=== PATIENT | female | born 1960 | race Caucasian/White ===

== ENCOUNTER 2017-06-28 07:13 | Outpatient (CLI) | payer SELFPAY ==
[2017-06-28 08:20] LABS: BASOPHILS % 0.7 (0.0-1.5); EOSINOPHILS % 1.4 % (0.0-6.8); MEAN CORPUSCULAR HEMOGLOBIN 29.6 pg (28.0-34.0); MEAN CORPUSCULAR VOLUME 90.1 fl (80.0-100.0); MONOCYTES % 4.1 % (0.0-11.0); NEUTROPHILS # 3.1 # k/uL (1.4-7.7)
[2017-06-28 09:09] LABS: eGFR (African) > 60; eGFR (Non-African) > 60
== END 2017-06-28 07:14 ==
LOC: LAB 07:13
PROVIDERS: ATTEND Family Medicine
DX: R60.9 Edema, unspecified (principal); K59.9 Functional intestinal disorder, unspecified; M13.80 Other specified arthritis, unspecified site; R63.5 Abnormal weight gain
CPT/HCPCS: 36415; 80053; 80061; 82306; 82784; 83516; 83880; 84443; 85025; 86812

== ENCOUNTER 2017-10-01 06:18 | Outpatient (CLI) | payer OTHER ==
--- NOTE | 2017-10-01 15:22 | Diagnostic Imaging Report ---
JOSHUA MENDOZA [facility] [address] [facility].[address] [address] Report Submission Date: Oct 01, 2017 12:34:12 PM CDT Patient Study Name: DESIRAE PRUETT Date: Oct 01, 2017 12:00:03 PM CDT Modality Type: DX Gender: F Description: UPPER EXTREMITY : 60 Institution: [facility] Physician: JOSHUA MENDOZA Examination: Plain film right hand History: BILAT HAND PAIN (Hx) Comparison exams: None available Findings: 3 views the right hand demonstrates articular degenerative changes. Mild generalized osteopenia. No fracture. No dislocation. No soft tissue abnormality. Impression: Osteopenia and degenerative changes. No acute appearing osseous abnormality. Electronically signed on Oct 01, 2017 12:34:12 PM CDT by: Obie PORTILLO
--- NOTE | 2017-10-01 15:23 | Diagnostic Imaging Report ---
JOSHUA MENDOZA [facility] [address] [facility].[address] [address] Report Submission Date: Oct 01, 2017 12:34:47 PM CDT Patient Study Name: DESIRAE PRUETT Date: Oct 01, 2017 12:04:08 PM CDT Modality Type: DX Gender: F Description: UPPER EXTREMITY : 60 Institution: [facility] Physician: JOSHUA MENDOZA Examination: Plain film left hand History: BILAT HAND PAIN (Hx) Comparison exams: None available Findings: 3 views the left hand demonstrates articular degenerative changes. Mild generalized osteopenia. No fracture. No dislocation. No soft tissue abnormality. Impression: Osteopenia and degenerative changes. No acute appearing osseous abnormality. Electronically signed on Oct 01, 2017 12:34:47 PM CDT by: Obie PORTILLO
== END 2017-10-01 06:20 ==
LOC: RAD 06:18
PROVIDERS: ATTEND Family Medicine
DX: L40.50 Arthropathic psoriasis, unspecified (principal)
CPT/HCPCS: 73130

== ENCOUNTER 2017-10-11 09:27 | Outpatient (CLI) | payer BC | END 2017-10-11 09:30 | LOC: LAB 09:27 | PROVIDERS: ATTEND Internal Medicine Rheumatology | DX: M25.441 Effusion, right hand (principal); M25.442 Effusion, left hand | CPT/HCPCS: 36415; 85651; 86038; 86140; 86200; 86431 ==

== ENCOUNTER 2017-12-02 11:04 | Outpatient (CLI) | payer OTHER ==
[2017-12-02 11:39] LABS: APPEARANCE,URINE CLEAR (CLEAR); COLOR,URINE YELLOW (YELLOW); OCCULT BLOOD,URINE TRACE-INTACT (NEGATIVE)
[2017-12-02 11:40] LABS: MEAN CORPUSCULAR HEMOGLOBIN 29.1 pg (28.0-34.0); MEAN CORPUSCULAR VOLUME 87.5 fl (80.0-100.0); PH URINE 5.5 (5.0 - 8.0); UROBILINOGEN URINE 0.2 Eu (0.2-1.0)
[2017-12-02 11:43] LABS: MONOCYTES % 3.7 % (0.0-11.0)
[2017-12-02 11:44] LABS: BASOPHILS % 0.2 (0.0-1.5); NEUTROPHILS # 4.6 # k/uL (1.4-7.7)
[2017-12-02 12:10] LABS: eGFR (African) > 60; eGFR (Non-African) > 60
--- NOTE | 2017-12-04 18:42 | Diagnostic Imaging Report ---
KATARZYNA BURGER [facility] [address] [facility] [address] [place] [address]. [address] Report Submission Date: Dec 03, 2017 4:38:03 PM CDT Patient Study Name: DESIRAE PRUETT Date: Dec 02, 2017 11:41:34 AM CDT Modality Type: DX Gender: F Description: ABDOMEN : 60 Institution: [facility] Physician: KATARZYNA BURGER Examination: Obstruction series History: ABDOMINAL PAIN/BLOATING WITH VOMITTING X 2 DAYS (Hx) Findings: 3 views obtained of the abdomen. No abnormal dilation of the large or small bowel. Stool throughout the large bowel. No suspicious calcification projecting over the renal fossa or the lower pelvic region. Osseous structures are appropriate for age. Impression: Moderate large bowel stool. No obstruction. No suspicious calcifications by plain film sensitivity. Electronically signed on Dec 03, 2017 4:38:03 PM CDT by: Obie PORTILLO
== END 2017-12-02 11:05 ==
LOC: LAB 11:04
PROVIDERS: ATTEND Family Medicine
DX: R10.9 Unspecified abdominal pain (principal)
CPT/HCPCS: 36415; 74019; 80053; 81002; 85025

== ENCOUNTER 2017-12-12 03:13 | Emergency (ER) | payer OTHER ==
[2017-12-12] MEDS ORDERED: 0.9 % SODIUM CHLORIDE 1,000 ML IV ONE (03:22)
[2017-12-12] MEDS ORDERED: ONDANSETRON HCL/PF 4 MG/ 2ML VIAL IVP ONE ×2 (03:22→10:24)
--- NOTE | 2017-12-12 03:34 | ED Physician Documentation ---
General Adult - HISTORIAN Historian: patient - HPI Stated Complaint: abdominal pain Chief Complaint: General Adult Additional Information: Abdominal pain, nausea and vomiting began at 0200. Has pain RUQ that "you wouldn 't understand." Has sharp stabbing pain RLQ/groin, that has been present, this episode, for 3-4 days. Eating makes the pain worse. No treatment attempted. Last normal bowel movement yesterday. 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 Says she is waiting for a surgical consult. RLQ pain has been present for weeks, with nausea and vomiting. Nauseated and vomiting at time of exam. Takes percocet for fibromyalgia and DJD. Takes SOMA tid. Says there was an 8 pound mass present and removed when she had her hysterectomy along with most of her abdominal wall on the right. - ROS CONST: no problems - PAST HX Past History: other (above) Surgeries/Procedures: , cholecystectomy, hysterectomy, other (T&A) - SOCIAL HX Smoking History: non-smoker - FAMILY HX Family History: No - REVIEWED ASSESSMENTS Nursing Assessment Reviewed: Yes Vitals Reviewed: Yes <ISIDORO GUO - Last Filed: 12/12/17 05:59> - VITAL SIGNS Vital Signs: Vital Signs Temp Pulse Resp BP Pulse Ox 97.8 F 82 20 158/79 98 12/12/17 03:15 12/12/17 03:15 12/12/17 03:15 12/12/17 03:15 12/12/17 03:15 <Doron Hebert - Last Filed: 12/12/17 13:43> - PAST HX Allergies/Adverse Reactions: Allergies Allergy/AdvReac Type Severity Reaction Status Date / Time Aminoglycosides Allergy Verified 12/12/17 03:48 ciprofloxacin [From Cipro] Allergy Verified 12/12/17 03:48 gabapentin [From Neurontin] Allergy Verified 12/12/17 03:48 Sulfa (Sulfonamide Allergy Verified 12/12/17 03:48 Antibiotics) sulfamethoxazole Allergy Verified 12/12/17 03:48 [From Septra] trimethoprim [From Septra] Allergy Verified 12/12/17 03:48 Home Medications: Ambulatory Orders Medication Instructions Recorded Buspirone HCl [Buspar] 7.5 mg PO DAILY u2 04/29/17 Butalbital/Aspirin/Caffeine 1 each PO PRN PRN av 04/29/17 [Fiorinal 50-325-40 Mg Capsule] Carisoprodol [Soma] 250 mg PO TID u2 04/29/17 Eletriptan HBr [Relpax] 40 mg PO DAILY u2 04/29/17 Meloxicam 15 mg PO DAILY u2 04/29/17 Nebivolol HCl [Bystolic] 5 mg PO DAILY u2 04/29/17 Oxycodone HCl/Acetaminophen 1 each PO Q4 PRN 12/12/17 [Percocet 10/325] Tizanidine HCl [Tizanidine HCl] 4 mg PO TID 12/12/17 Progress - Progress Progress: Report Submission Date: Dec 12, 2017 4:20:49 AM CDT Patient Study Name: DESIRAE PRUETT Date: Dec 12, 2017 3:54:30 AM CDT Modality Type: DX Gender: F Description: ABDOMEN : 60 Institution: [facility] Physician: ISIDORO GUO - SOLITARIO Examination: Obstruction series History: NAUSEA, VOMITING, PT COMPLAINS OF RLQ PAIN (Hx) Comparison exam: 02 December 2017 Findings: 4 views obtained of the chest and abdomen. No abnormal dilation of the large or small bowel. Moderate to large stool throughout the large bowel. No suspicious calcification projecting over the renal fossa or the lower pelvic region. Pelvic phleboliths. Osseous structures are appropriate for age. Surgical clip right upper quadrant. Single view the chest without focal infiltrative process. No blunting of the costophrenic margin. Impression: Continued moderate to large amount of large bowel stool. No Obstruction. No acute cardiopulmonary process No suspicious calcifications by plain film sensitivity. Electronically signed on Dec 12, 2017 4:20:49 AM CDT by: Obie Abrams Attempted to order CT report from [facility]. Eventual phone call to complaint coordinator and told CT with contrast recommended. Eventually, pt said she had report on her phone. Radiologist recommended oral contrast. Procedure ordered as outpatient, results to Dr. King. Insists doc at [facility] told her a surgical consult would be set up. 0535, pruritic erythema L forearm from IV L hand proximal to antecubital area. Giveen IV benadryl. 0540, sleeping soundly. 0550, records received from [facility] ER visit 12/04. Pt discharged with gastritis 2/2 excess laxative use. She has follow up with GI scheduled for 12/24. No mention made of indeterminate appendix findings on CT same date. <ISIDORO GUO - Last Filed: 12/12/17 05:59> - Progress Progress: Addendum: Pt remained in ER for CT abd/pelvis with oral contrast (no IV contrast): results as follows: Technique: Helically acquired images were obtained from the hemidiaphragms to the pelvic floor following oral but no intravenous contrast. There is fatty infiltration of the liver. There is air within the common bile duct and left intrahepatic biliary duct in this patient who is status post cholecystectomy, presumably from prior intervention. On these images without IV contrast, which limits solid organ evaluation, the spleen, pancreas, adrenal glands and kidneys appear normal. The abdominal aorta is normal in caliber. At the right lower quadrant, there is an abnormality in association with the appendix. There does appear to be an appendicolith within the proximal aspect of the appendix although this finding potentially could represent dense contrast extending into the appendix. However, there is also a linear/tubular low attenuation structure in this location with Hounsfield units of 45, not consistent with simple fluid. This tubular structure measures 3 cm in greatest dimension. There is no adjacent inflammatory fat stranding. These findings are relatively indeterminate. These findings could represent the sequelae of an atypical appendicitis. However, the possibility of a mucocele involving the appendix would not be excluded. Small and large bowel loops in the abdomen are normal in caliber. There is no free fluid in the abdomen pelvis. There are a few sigmoid diverticula. There has been a hysterectomy. Bladder configuration is unremarkable. No ureteral stones are noted. There is a small hiatal hernia. Lung bases are clear. Impression: No comparison studies are available. Fatty liver. Status post cholecystectomy. As described, there is air within the biliary tree which may relate to prior instrumentation in this patient who is status post cholecystectomy. There is an abnormality associated with the region of the appendix. Within the proximal appendix, there is either dense contrast or an appendicolith. There is a tubular 3 cm structure at the right lower quadrant which likely represents a portion of the appendix filled with soft tissue density with Hounsfield units of 45. These findings are nonspecific, possibly an atypical appendicitis but possibly a mucocele of the appendix. Mild sigmoid diverticulosis. Status post hysterectomy. Pt has air within biliary tree and is s/p cholecysetectomy, but cholecystectomy was in 1988. Will transfer pt to [facility] ER Dr. Auguset for further eval. Earlier CT report from [place] advised possible direct visualization of appendix area via colonoscopy. Surgical consult may be warranted. Pt has continued to have RLQ pain, N/V. <Doron Hebert - Last Filed: 12/12/17 13:43> ED Results Lab/Radiology - Orders Orders: ED Orders Category Date Time Status CBC/PLATELET/DIFF Routine Lab 12/12/17 Ordered CMP Routine Lab 12/12/17 Ordered LIPASE Stat Lab 12/12/17 Ordered URINALYSIS Routine Lab 12/12/17 Ordered NORMAL SALINE @ 1000 MLS/HR ( 1000ml BOLUS) Med 12/12/17 03:22 Ordered 0.9 % Sodium Chloride [Normal Saline] 1,000 ml IV Q1H Ondansetron HCl/Pf [Zofran 4 mg/2 ml] Med 12/12/17 03:22 Once 4 mg IVP NOW ONE <ISIDORO GUO - Last Filed: 12/12/17 05:59> - Lab Results Lab Results: Lab Results 12/12/17 12/12/17 12/12/17 05:30 05:30 03:42 WBC RBC Hgb Hct MCV MCH MCHC RDW Plt Count Neut % (Auto) Lymph % (Auto) Saline % (Auto) Eos % (Auto) Baso % (Auto) Neut # (Auto) Lymph # (Auto) Saline # (Auto) Eos # (Auto) Baso # (Auto) Reactive Lymphs % Reactive Lymphs # Sodium Potassium Chloride Carbon Dioxide BUN Creatinine Estimated Creat Clear Est GFR ( Amer) Est GFR (Non-Af Amer) Glucose Calcium Total Bilirubin AST ALT Alkaline Phosphatase Total Protein Albumin Lipase Urine Color Yellow (YELLOW) Urine Appearance Clear (CLEAR) Urine pH 6.5 (5.0 - 8.0) Ur Specific [place] 1.015 (1.010-1.030) Urine Protein Negative mg/dL mg/dL (NEGATIVE) Urine Ketones Negative mg/dL mg/dL (NEGATIVE) Urine Occult Blood Negative (NEGATIVE) Urine Nitrite Negative (NEGATIVE) Urine Bilirubin Negative (NEGATIVE) Urine Urobilinogen 0.2 Eu Eu (0.2-1.0) Ur Leukocyte Esterase Negative (NEGATIVE) Urine Glucose Negative mg/dL mg/dL (NEGATIVE) Opiates Screen Negative ng/mL ng/mL (<300) Oxycodone Screen Non negative ng/mL H ng/mL (<100) Methadone Screen Negative ng/mL ng/mL (<200) Ur Barbiturates Screen Negative ng.mL ng.mL (<200) Tricyclic Antidepress Negative ng/mL ng/mL (<300) Phencyclidine Screen Negative ng/mL ng/mL (< 25) Amphetamines Screen Negative ng/mL ng/mL (<500) U Methamphetamines Scrn Negative ng/mL ng/mL (<500) MDMA Negative ng/mL ng/mL (<500) Benzodiazepines Screen Negative ng/mL ng/mL (<150) Urine Cocaine Screen Negative ng/mL ng/mL (<150) U Cannabinoids Screen Negative ng/mL ng/mL (< 50) Ethyl Alcohol < 10.0 mg/dL mg/dL (0.0-10.0) 12/12/17 12/12/17 12/12/17 03:41 03:41 03:41 WBC 7.60 K/ul K/ul (4.00-12.00) RBC 4.76 M/ul M/ul (3.90-5.20) Hgb 13.7 g/dL g/dL (12.0-16.0) Hct 41.1 % % (34.5-46.5) MCV 86.5 fl fl (80.0-100.0) MCH 28.9 pg pg (28.0-34.0) MCHC 33.4 g/dL g/dL (30.0-36.0) RDW 13.4 % % (11.3-14.3) Plt Count 186 K/mm3 K/mm3 (130-400) Neut % (Auto) 67.8 % % (39.0-79.0) Lymph % (Auto) 25.4 % % (16.0-50.0) Saline % (Auto) 3.8 % % (0.0-11.0) Eos % (Auto) 1.1 % % (0.0-6.8) Baso % (Auto) 0.2 (0.0-1.5) Neut # (Auto) 5.1 # k/uL # k/uL (1.4-7.7) Lymph # (Auto) 1.9 # k/uL # k/uL (0.6-4.0) Saline # (Auto) 0.3 # k/uL # k/uL (0.0-0.9) Eos # (Auto) 0.1 # k/uL # k/uL (0.0-0.6) Baso # (Auto) 0.0 # k/uL # k/uL (0.0-0.5) Reactive Lymphs % 1.8 % % (0.0-5.0) Reactive Lymphs # 0.1 # k/uL # k/uL (0.0-0.8) Sodium 142 mmol/L mmol/L (136-145) Potassium 3.6 mmol/L mmol/L (3.5-5.1) Chloride 103 mmol/L mmol/L (98-107) Carbon Dioxide 26 mmol/L mmol/L (22-30) BUN 12 mg/dL mg/dL (7-17) Creatinine 0.70 mg/dL mg/dL (0.52-1.04) Estimated Creat Clear 164 Est GFR ( Amer) > 60 (60 - ) Est GFR (Non-Af Amer) > 60 (60 - ) Glucose 137 mg/dL H mg/dL (74-106) Calcium 9.5 mg/dL mg/dL (8.4-10.2) Total Bilirubin 0.3 mg/dL mg/dL (0.2-1.3) AST 26 U/L U/L (15-46) ALT 26 U/L U/L (13-69) Alkaline Phosphatase 109 U/L U/L (38-126) Total Protein 7.8 g/dL g/dL (6.3-8.2) Albumin 4.6 g/dL g/dL (3.5-5.0) Lipase 41 U/L U/L (23-300) Urine Color Urine Appearance Urine pH Ur Specific [place] Urine Protein Urine Ketones Urine Occult Blood Urine Nitrite Urine Bilirubin Urine Urobilinogen Ur Leukocyte Esterase Urine Glucose Opiates Screen Oxycodone Screen Methadone Screen Ur Barbiturates Screen Tricyclic Antidepress Phencyclidine Screen Amphetamines Screen U Methamphetamines Scrn MDMA Benzodiazepines Screen Urine Cocaine Screen U Cannabinoids Screen Ethyl Alcohol - Orders Orders: ED Orders Category Date Time Status ABD SERIES PA CHEST [RAD] Stat Exams 12/12/[address] ABD & PELVIS W/O CON Stat Exams 12/12/17 Taken ALCOHOL MEDICAL USE ONLY Stat Lab 12/12/17 03:42 Completed CBC/PLATELET/DIFF Routine Lab 12/12/17 03:41 Completed CMP Routine Lab 12/12/17 03:41 Completed LIPASE Stat Lab 12/12/17 03:41 Completed OPIATES,QUANT Routine Lab 12/12/17 05:30 Received UA MACRO DIP ONLY Routine Lab 12/12/17 05:30 Completed Urine drug screen [DRUG SCREEN URINE MEDICAL ONLY] Lab 12/12/17 05:30 Completed Routine 0.9 % Sodium Chloride [Normal Saline] 1,000 ml Med 12/12/17 03:22 Discontinued IV Q1H 0.9 % Sodium Chloride [Sodium Chloride] 100 ml Med 12/12/17 10:52 Discontinued IV .STK-MED Ketorolac Tromethamine [Toradol] Med 12/12/17 04:33 Discontinued 30 mg IVP NOW ONE Morphine Sulfate Med 12/12/17 05:08 Discontinued 4 mg IVP NOW ONE Ondansetron HCl/Pf [Zofran 4 mg/2 ml] Med 12/12/17 03:22 Discontinued 4 mg IVP NOW ONE Ondansetron HCl/Pf [Zofran 4 mg/2 ml] Med 12/12/17 10:24 Discontinued 4 mg IVP NOW ONE Promethazine HCl [Phenergan] Med 12/12/17 10:48 Discontinued 25 mg .ROUTE .STK-MED ONE Promethazine HCl [Phenergan] Med 12/12/17 10:52 Discontinued 25 mg .ROUTE .STK-MED ONE Promethazine HCl [Phenergan] 25 mg Med 12/12/17 10:49 Discontinued 0.9 % Sodium Chloride [Sodium Chloride] 50 ml IV NOW diphenhydrAMINE HCL [Benadryl] Med 12/12/17 05:35 Discontinued 25 mg IVP NOW ONE Doron Garvey Filed: 12/12/17 13:43> General Adult Physical Exam - PHYSICAL EXAM GENERAL APPEARANCE: obese EENT: ENT inspection normal, pharynx normal NECK: supple RESPIRATORY: no resp distress, breath sounds normal CVS: reg rate & rhythm, heart sounds normal ABDOMEN: soft, normal bowel sounds, tenderness (liver edge) BACK: normal inspection, no CVA tenderness SKIN: warm/dry, normal color, other (thinned scalp hair) EXTREMITIES: normal range of motion (gait and stance), no evidence of injury NEURO: CN's nml as tested, motor nml, sensation nml <ISIDORO GUO - Last Filed: 12/12/17 05:59> Discharge Decision to Admit: NO Decision Time: 06:00 <ISIDORO GUO - Last Filed: 12/12/17 05:59> <Doron Hebert - Last Filed: 12/12/17 13:43> Clincal Impression: Abdominal pain Qualifiers: Abdominal location: unspecified location Qualified Code(s): R10.9 - Unspecified abdominal pain Referrals: Raeann Bell DO [Primary Care Provider] - 2 Days Additional Instructions: Your labs and x-rays were reassuring. Outpatient services will call you to schedule the CT of your abdomen and pelvis with oral contrast. The results of that study will go to Dr. King, and will determine whether surgery needs to be involved. Return to the ER if your condition worsens. Condition: Good Disposition: 01 HOME, SELF-CARE
[2017-12-12 03:43] VITALS: BP 158/79
[2017-12-12 03:47] LABS: BASOPHILS % 0.2 (0.0-1.5); EOSINOPHILS % 1.1 % (0.0-6.8); MEAN CORPUSCULAR HEMOGLOBIN 28.9 pg (28.0-34.0); MEAN CORPUSCULAR VOLUME 86.5 fl (80.0-100.0); MONOCYTES % 3.8 % (0.0-11.0); NEUTROPHILS # 5.1 # k/uL (1.4-7.7)
[2017-12-12 04:15] LABS: eGFR (African) > 60; eGFR (Non-African) > 60
[2017-12-12] MEDS ORDERED: KETOROLAC TROMETHAMINE 30 MG/1ML VIAL IVP ONE (04:33)
[2017-12-12] MEDS ORDERED: MORPHINE SULFATE 10 MG/ML CARTRIDGE IVP ONE (05:08)
[2017-12-12] MEDS ORDERED: diphenhydrAMINE HCL 50 MG/ML VIAL IVP ONE (05:35)
--- NOTE | 2017-12-12 06:45 | Diagnostic Imaging Report ---
ISIDORO GUO [facility] [address] [facility] [address] [place] [address]. [address] Report Submission Date: Dec 12, 2017 4:20:49 AM CDT Patient Study Name: DESIRAE PRUETT Date: Dec 12, 2017 3:54:30 AM CDT Modality Type: DX Gender: F Description: ABDOMEN : 60 Institution: [facility] Physician: ISIDORO GUO Examination: Obstruction series History: NAUSEA, VOMITING, PT COMPLAINS OF RLQ PAIN (Hx) Comparison exam: 02 December 2017 Findings: 4 views obtained of the chest and abdomen. No abnormal dilation of the large or small bowel. Moderate to large stool throughout the large bowel. No suspicious calcification projecting over the renal fossa or the lower pelvic region. Pelvic phleboliths. Osseous structures are appropriate for age. Surgical clip right upper quadrant. Single view the chest without focal infiltrative process. No blunting of the costophrenic margin. Impression: Continued moderate to large amount of large bowel stool. No Obstruction. No acute cardiopulmonary process No suspicious calcifications by plain film sensitivity. Electronically signed on Dec 12, 2017 4:20:49 AM CDT by: Obie PORTILLO
[2017-12-12 07:29] LABS: APPEARANCE,URINE CLEAR (CLEAR); COLOR,URINE YELLOW (YELLOW); OCCULT BLOOD,URINE NEGATIVE (NEGATIVE); PH URINE 6.5 (5.0 - 8.0); UROBILINOGEN URINE 0.2 Eu (0.2-1.0)
[2017-12-12 09:55] LABS: CANNABINOIDS NEGATIVE ng/mL (< 50); METHYLENEDIOXYMETHAMPHETAMINE NEGATIVE ng/mL (<500)
[2017-12-12] MEDS ORDERED: PROMETHAZINE HCL 25 MG/ML VIAL ONE ×2 (10:48→10:52)
[2017-12-12] MEDS ORDERED: PROMETHAZINE HCL 25 MG in 0.9 % SODIUM CHLORIDE 50 ML IV ONE (10:49)
[2017-12-12] MEDS ORDERED: 0.9 % SODIUM CHLORIDE 100 ML IV ONE (10:52)
--- NOTE | 2017-12-12 19:00 | Diagnostic Imaging Report ---
RALPH BINGHAM [facility] [address] [facility] [address] [place], [place]. [address] Report Submission Date: Dec 12, 2017 12:30:53 PM CDT Patient Study Name: DESIRAE PRUETT Date: Dec 12, 2017 11:51:00 AM CDT Modality Type: CT\SR Gender: F Description: ABD/PELVIS W/O CONTRAS : 60 Institution: [facility] Physician: RALPH BINGHAM CT abdomen and pelvis History: RLQ PAIN; N/V; RADIOLOGIST FROM ANOTHER FACILITY REQUESTED FROM PRIOR ST[facility]Y FOR NEOPLASM (Hx) / ITS.REASON RLQ pain, radiology requested for ? neoplasm Technique: Helically acquired images were obtained from the hemidiaphragms to the pelvic floor following oral but no intravenous contrast. There is fatty infiltration of the liver. There is air within the common bile duct and left intrahepatic biliary duct in this patient who is status post cholecystectomy, presumably from prior intervention. On these images without IV contrast, which limits solid organ evaluation, the spleen, pancreas, adrenal glands and kidneys appear normal. The abdominal aorta is normal in caliber. At the right lower quadrant, there is an abnormality in association with the appendix. There does appear to be an appendicolith within the proximal aspect of the appendix although this finding potentially could represent dense contrast extending into the appendix. However, there is also a linear/tubular low attenuation structure in this location with Hounsfield units of 45, not consistent with simple fluid. This tubular structure measures 3 cm in greatest dimension. There is no adjacent inflammatory fat stranding. These findings are relatively indeterminate. These findings could represent the sequelae of an atypical appendicitis. However, the possibility of a mucocele involving the appendix would not be excluded. Small and large bowel loops in the abdomen are normal in caliber. There is no free fluid in the abdomen pelvis. There are a few sigmoid diverticula. There has been a hysterectomy. Bladder configuration is unremarkable. No ureteral stones are noted. There is a small hiatal hernia. Lung bases are clear. Impression: No comparison studies are available. Fatty liver. Status post cholecystectomy. As described, there is air within the biliary tree which may relate to prior instrumentation in this patient who is status post cholecystectomy. There is an abnormality associated with the region of the appendix. Within the proximal appendix, there is either dense contrast or an appendicolith. There is a tubular 3 cm structure at the right lower quadrant which likely represents a portion of the appendix filled with soft tissue density with Hounsfield units of 45. These findings are nonspecific, possibly an atypical appendicitis but possibly a mucocele of the appendix. Mild sigmoid diverticulosis. Status post hysterectomy. Electronically signed on Dec 12, 2017 12:30:53 PM CDT by: Natalie Waite Addendum: Upon further review of this study, the described tubular collection adjacent to the appendix is actually consistent with a small amount of relatively high density fluid in the right paracolic gutter. Upon further review of the study, there is a similar pocket of fluid within the left paracolic gutter. The appendix is felt to be small and filled with contrast. Therefore, given the similar findings within the left paracolic gutter, the tubular structure described on the right would not be consistent with either appendicitis or a mucocele rather a small amount of relatively high density free fluid. These findings were discussed with Dr. Young in the emergency room on December 12, 2017 at 1700. Addendum electronically signed by Natalie Waite on December 12, 2017 5:02:26 PM CDT [facility]
== END 2017-12-12 14:05 | disposition short-term general hospital (02) ==
LOC: ED 03:13
DX: R10.9 Unspecified abdominal pain (principal)
CPT/HCPCS: 74022; 74176; 80053; 80320; 80377; 81002; 83690; 85025; J1200; J1885; J2270; J2405; J2550; J7030; 96365; 96367; 96375; 96376; G0480; G0481; S1016